=== PATIENT | female | born 1995 | race Caucasian/White ===

== ENCOUNTER 2020-05-06 08:07 | Outpatient (CLI) | payer BC, SELFPAY ==
--- NOTE | ~2020-05-06 | CT_ITS ---
EXAMINATION: CT brain w con DATE: 05/06/2020 08:40 INDICATION: Migraine headache. TECHNIQUE: Computed tomography (CT) of the head was performed with 100 mL Omnipaque 350 intravenous c ontrast. The mA was adjusted according to patient size. Iterative reconstruction technique was employ ed. The dose-length product was 599.57 mGy-cm. COMPARISON: Head CT 12/30/2015 FINDINGS: There is no intracranial hemorrhage, acute infarction, or abnormal intracranial mass lesion . The ventricles are normal in size. The orbits are normal. The paranasal sinuses are clear. The mast oid air cells are normal. IMPRESSION: 1. Normal brain. Reviewed, dictated and finalized at location A. IMPRESSION: 1. Normal brain.
== END 2020-05-06 08:08 ==
PROVIDERS: PCP Family Medicine; Visit Provider Family Medicine
DX: G43.909 Migraine, unspecified, not intractable, without status migrainosus (principal)
CPT/HCPCS: 70460; Q9967

== ENCOUNTER 2022-05-09 08:25 | Outpatient (CLI) | payer BC, SELFPAY ==
--- NOTE | ~2022-05-09 | MR_ITS ---
EXAMINATION: MR brain/brain stem wo con DATE: 05/09/2022 09:20 INDICATION: Left-sided migraine headache. TECHNIQUE: Magnetic resonance imaging (MRI) of the brain and brainstem was performed without intraven ous contrast. COMPARISON: Head CT 05/06/2020 FINDINGS: There is no intracranial hemorrhage, acute infarction, or abnormal intracranial mass lesion . The ventricles are normal in size. There is mild mucosal thickening in the paranasal sinuses. The o rbits are normal. The mastoid air cells are normal. IMPRESSION: 1. Normal brain. Reviewed, dictated and finalized at location A. IMPRESSION: 1. Normal brain.
== END 2022-05-09 08:26 ==
PROVIDERS: PCP Physician Assistant; Visit Provider Family Medicine
DX: G43.909 Migraine, unspecified, not intractable, without status migrainosus (principal)
CPT/HCPCS: 70551